=== PATIENT | female | born 1965 | race Caucasian/White ===

== ENCOUNTER 2017-10-30 16:23 | Emergency (ER) | payer BC ==
[~2017-10-30] VITALS: Ht 170.2 cm; Wt 96.6 kg
[2017-10-30 16:40] VITALS: TEMP 36.7; Ht 170.2 cm; Wt 96.6 kg
--- NOTE | 2017-10-30 17:13 | DIAGNOSTIC IMAGING REPORT ---
LEFT KNEE 3 VIEWS CLINICAL HISTORY: Left knee pain. Twisting injury. FINDINGS: AP, crosstable lateral, and sunrise views of the left knee are obtained. No prior studies are available for comparison at the time of dictation. The skeletal structures are well mineralized for age. No fracture is identified. There is mild degenerative joint space narrowing in the medial and patellofemoral compartments. There are patellar enthesophytes. A joint effusion is identified. A calcified fabella is incidentally noted. Soft tissue swelling is seen around the knee. IMPRESSION: 1. Soft tissue swelling and joint effusion. No left knee fracture is seen. 2. Degenerative change as above. Electronically signed by: Edy Trammell M.D. 10/30/2017 5:12 PM Dictated Date/Time: 10/30/2017 5:11 PM
[2017-10-30] MEDS ORDERED: CYCL10TA6 PO (17:41)
--- NOTE | 2017-10-30 17:42 | EMERGENCY ROOM VISIT NOTE ---
History First contact with patient: 16:42 Chief Complaint: LEG PAIN,LEG INJURY Stated Complaint: LEFT KNEE INJURY History of Present Illness The patient is a 52 year old female who presents to the Emergency Room with complaints of left knee pain. Patient reports that she had a previous injury to the left knee approximately 1 year ago. She states that she reinjured her knee last week. She states that she was standing and twisted her knee. She reports pain throughout her knee which is worse at night when she lies down and worse with walking or weightbearing. She rates her discomfort an 8/10 and states it is an aching pain. She denies any history of surgery or issues with this knee. She denies any numbness or weakness. Review of Systems A complete 6 point review of systems was reviewed with the patient with pertinent positives and negatives as per history of present illness. All else were negative. Past Medical/Surgical History Medical Problems: (1) Diabetes mellitus, type II (2) Hypertension Surgical Problems: (1) History of appendectomy (2) History of section (3) History of wisdom tooth extraction Social History Smoking Status: Never Smoker Alcohol Use: none Housing Status: lives with family Occupation Status: employed Current/Historical Medications Scheduled Cyclobenzaprine Hcl (Flexeril), 10 MG PO TID Physical Exam Vital Signs Date Time Temp Pulse Resp B/P (MAP) Pulse Ox O2 Delivery O2 Flow Rate FiO2 10/30/17 17:51 65 16 134/76 98 10/30/17 16:40 36.7 95 16 133/78 97 Room Air Physical Exam VITALS: Vitals are noted on the nurse's note and reviewed by myself. Vital signs stable. GENERAL: This is a 52-year-old female, in no acute distress, nondiaphoretic, well-developed well-nourished. SKIN: The skin was without rashes, erythema, edema, or bruising. MUSCULOSKELETAL: No deformity of the left knee. There is vague tenderness to palpation to both medial and lateral aspects of the left knee. No laxity to valgus or varus stressing. Full range of motion. NEURO: Patient was alert and oriented to person place and time. Normal sensation to touch of the left lower extremity. Medical Decision & Procedures ER Provider Diagnostic Interpretation: LEFT KNEE 3 VIEWS CLINICAL HISTORY: Left knee pain. Twisting injury. FINDINGS: AP, crosstable lateral, and sunrise views of the left knee are obtained. No prior studies are available for comparison at the time of dictation. The skeletal structures are well mineralized for age. No fracture is identified. There is mild degenerative joint space narrowing in the medial and patellofemoral compartments. There are patellar enthesophytes. A joint effusion is identified. A calcified fabella is incidentally noted. Soft tissue swelling is seen around the knee. IMPRESSION: 1. Soft tissue swelling and joint effusion. No left knee fracture is seen. 2. Degenerative change as above. Medical Decision Differential diagnosis includes fracture, contusion, sprain, ligamentous injury , among others. The patient was evaluated as above. X-ray of the left knee was performed and did show a joint effusion but no acute bony abnormalities. Patient was informed of the findings. She declined crutches and knee immobilizer, stating that she has a brace at home that she would like to wear. She was advised to follow-up with orthopedics for further evaluation. She has been taking Flexeril and states this helps her significantly. She was given a prescription for this. She verbalized understanding of my assessment and treatment plan was discharged home in good condition. Medication Reconcilliation Current Medication List: was personally reviewed by [place] Blood Pressure Screening Patient's blood pressure: Normal blood pressure Impression Primary Impression: Left knee pain Departure Information Dispostion Home / Self-Care Condition GOOD Prescriptions Cyclobenzaprine Hcl (FLEXERIL) 10 Mg Tab 10 MG PO TID for 5 Days, #15 TAB Prov: Shantell Granados .[place] 10/30/17 Referrals RV. Goldsmith MD (PCP) Arpan Hernandez M.D. Patient Instructions My [facility] Additional Instructions You have been treated in the Emergency Department for Knee Pain. Flexeril as prescribed as needed for pain. For pain control, you can use the following [id number] medicines (if >12 yo): - Regular strength (325mg/tab) Tylenol (acetaminophen) 2 tabs every 4-6 hours as needed. Do not exceed 12 tablets in a 24 hour period. Avoid taking more than 4 grams (4000 mg) of Tylenol per day. This includes any other sources of acetaminophen you may take on a regular basis. - Regular strength (200 mg/tab) Advil (ibuprofen) 1-2 tabs every 4-6 hours as needed. Do not exceed a dose of 3200 mg per day. If this is a recent injury (<24 hrs), ice can be applied to the area of pain for the first 3 days to help decrease pain and inflammation. Ice massages can be performed by freezing water in a paper cup, peeling back the cup to expose the ice and then massaging over the affected area. Follow-up with orthopedics for further evaluation of your knee pain. Return to the Emergency Department if your current symptoms worsen despite treatment course outlined above. Problem Qualifiers Primary Impression: Left knee pain Chronicity: acute Qualified Codes: M25.562 - Pain in left knee
[2017-10-30 17:51] VITALS: BP 134/76; PULSE 65; O2SAT 98
== END 2017-10-30 17:52 | disposition home or self-care (01) ==
LOC: C.EDB 16:25 → C.EDD 17:52
DX: M25.562 Pain in left knee (principal); X50.0XXA Overexertion from strenuous movement or load, initial encounter; E11.9 Type 2 diabetes mellitus without complications; I10 Essential (primary) hypertension

== ENCOUNTER 2018-01-08 16:33 | Emergency (ER) | payer BC ==
[~2018-01-08] VITALS: Ht 170.2 cm; Wt 97.4 kg
[2018-01-08 16:36] VITALS: TEMP 36.7; Ht 170.2 cm; Wt 97.4 kg
[2018-01-08 17:04] LABS: BASO % 0.5 %; BASO ABS # 0.03 K/uL (0-0.2); EOS % 1.7 %; EOS ABS # 0.11 K/uL (0-0.5); HEMATOCRIT 37.3 % (37-47); HEMOGLOBIN 12.8 g/dL (12.0-16.0); IG# 0.02 K/uL (0.00-0.02); LYMPH % 39.5 %; LYMPH ABS # 2.59 K/uL (1.2-3.4); MEAN CELL VOLUME 81.1 fL (80-100); MEAN CORPUSCULAR HEMOGLOBIN 27.8 pg (25-34); MEAN CORPUSCULAR HGB CONC 34.3 g/dl (32-36); MEAN PLATELET VOLUME 9.7 fL (7.4-10.4); MONO ABS # 0.26 K/uL (0.11-0.59); NEUT ABS # 3.54 K/uL (1.4-6.5); PLATELET COUNT 189 K/uL (130-400); RED CELL DISTRIBUTION WIDTH CV 15.9 % (11.5-14.5); RED CELL DISTRIBUTION WIDTH SD 47.1 fL (36.4-46.3); WHITE BLOOD COUNT 6.55 K/uL (4.8-10.8)
[2018-01-08 17:26] LABS: ALBUMIN 4.2 gm/dl (3.4-5.0); CALCIUM 8.9 mg/dl (8.5-10.1); CREATININE 0.77 mg/dl (0.60-1.20); POTASSIUM 4.2 mmol/L (3.5-5.1); TOTAL PROTEIN 7.5 gm/dl (6.4-8.2)
--- NOTE | 2018-01-08 17:49 | DIAGNOSTIC IMAGING REPORT ---
ULTRASOUND RIGHT UPPER QUADRANT ABDOMEN CLINICAL HISTORY: Right upper quadrant and epigastric abdominal pain. COMPARISON STUDY: No priors. TECHNIQUE: Real-time, grayscale, and color flow sonography of the right upper quadrant of the abdomen was performed. Images are reviewed in the transverse and longitudinal planes. FINDINGS: Liver: The liver is enlarged and demonstrates heterogeneously increased echotexture consistent with hepatic steatosis. Fatty sparing is seen adjacent to gallbladder fossa. There is no intrahepatic biliary ductal dilatation. The main portal vein is patent. Gallbladder: There are numerous calcified shadowing gallstones. The gallbladder is not distended. There is no gallbladder wall thickening or pericholecystic fluid. A sonographic Thomas's sign is reportedly absent. The common bile duct measures up to 0.5 cm in diameter. Pancreas: Visualized portions of the pancreatic head and body are normal in appearance. The splenic vein is patent. Right kidney: Survey images of the right kidney demonstrate normal size and echotexture. There is no hydronephrosis. Ascites: None. IMPRESSION: 1. Cholelithiasis without sonographic evidence of acute cholecystitis. 2. Hepatomegaly and hepatic steatosis. Electronically signed by: Edy Trammell M.D. 01/08/2018 5:47 PM Dictated Date/Time: 01/08/2018 5:46 PM
[2018-01-08] MEDS ORDERED: INSU1INJ31 SC (18:01)
[2018-01-08] MEDS ORDERED: MECL1TAB42 PO (18:01)
[2018-01-08] MEDS ORDERED: GABA-113 PO (18:01)
[2018-01-08] MEDS ORDERED: ASPI81TA28 PO (18:01)
[2018-01-08] MEDS ORDERED: EFF75 PO (18:01)
[2018-01-08] MEDS ORDERED: LSN20 PO (18:01)
[2018-01-08] MEDS ORDERED: OMEG10007 PO (18:01)
[2018-01-08] MEDS ORDERED: ATOR-24 PO (18:01)
[2018-01-08] MEDS ORDERED: MELO-84 PO (18:01)
[2018-01-08] MEDS ORDERED: PRLSR20 PO (18:01)
[2018-01-08] MEDS ORDERED: ALPR-411 PO (18:01)
[2018-01-08] MEDS ORDERED: CYAN500T PO (18:01)
[2018-01-08] MEDS ORDERED: METF-384 PO (18:01)
[2018-01-08] MEDS ORDERED: INSU1.2I SC (18:01)
[2018-01-08] MEDS ORDERED: GI COCKTAIL PO STA (18:20)
[2018-01-08] MEDS ORDERED: ALUMINUM/MAGNESIUM SUSP 30 ML UDC ONE (18:40)
[2018-01-08] MEDS ORDERED: LIDOCAINE HCL 2% VISC SOLN 20 ML UDC ONE (18:40)
[2018-01-08 19:00] VITALS: BP 113/65; PULSE 95; O2SAT 95
--- NOTE | 2018-01-08 19:00 | EMERGENCY ROOM VISIT NOTE ---
History Report prepared by Sallie: Louann Ramirez Under the Supervision of: Dr. Luther Mckinney D.O. First contact with patient: 16:39 Chief Complaint: ABDOMINAL PAIN Stated Complaint: EPI GASTRIC AND RUQ PO X3DAY History of Present Illness The patient is a 52 year old female who presents to the Emergency Room with complaints of constant abdominal pain starting 3 days ago. The patient states that it started out and was mild. She reports that it has since become worse. She reports that the pain is in her epigastric and right upper quadrant. She state that she thought it was just muscular, but it has not gotten better. She notes that she was in tears after her 12 hour shift yesterday. The patient currently rates her pain as a 5/10 in severity. She notes her last bowel movement was sometime today and was normal. Pain does not radiate anywhere else. Pain is worse when she hunches over or stretches out her abdomen. Does not change with eating or drinking. The patient denies urinary symptoms, chest pain, shortness of breath, back pain, the pain being worse with movement, and changes with eating or drinking. She notes that she has a history of an appendectomy, but has not had a hysterectomy or cholecystectomy. Source of History: patient Onset: 3 days ago Position: abdomen Symptom Intensity: 5/10 Timing: constant Associated Symptoms: No chest pain, No SOB, No back pain, No urinary symptoms Note: The patient denies the pain being worse with movement. Review of Systems See HPI for pertinent positives & negatives. A total of 10 systems reviewed and were otherwise negative. Past Medical & Surgical Medical Problems: (1) Diabetes mellitus, type II (2) Hypertension Surgical Problems: (1) History of appendectomy (2) History of section (3) History of wisdom tooth extraction Family History Cancer Diabetes mellitus Heart disease Hypertension Social History Smoking Status: Never Smoker Alcohol Use: none Marital Status: Housing Status: lives with family Occupation Status: employed Current/Historical Medications Scheduled Aspirin (Aspirin Ec), 81 MG PO DAILY Atorvastatin (Lipitor), 40 MG PO DAILY Cyanocobalamin (Vitamin B-12), 500 MCG PO DAILY Fish Oil ([place]-3), 1 CAP PO DAILY Insulin Glargine (Toujeo Solostar), 80 UNITS SC QPM Insulin Lispro (Human) (Humalog Kwikpen), Unknown Dose SC DIRECTED Lisinopril (Lisinopril), 30 MG PO DAILY Metformin Hcl (Glucophage), 1,000 MG PO BID Omeprazole (Prilosec), 20 MG PO DAILY Venlafaxine Hcl (Effexor), 75 MG PO DAILY Scheduled PRN Alprazolam (Xanax), 0.25 MG PO TID PRN for Anxiety/Agitation Gabapentin (Neurontin), 300 MG PO BID PRN for Pain Meclizine Hcl (Meclizine Hcl), 25 MG PO TID PRN for Dizziness or Vertigo Meloxicam (Mobic), 15 MG PO DAILY PRN for Pain Allergies Coded Allergies: Latex1 -Allergic Contact Dermititis (Verified Allergy, Intermediate, RED RASH, IRRITATION TO SKIN, 01/08/18) Latex (Verified Allergy, Unknown, RASH, 01/08/18) Physical Exam Vital Signs Date Time Temp Pulse Resp B/P (MAP) Pulse Ox O2 Delivery O2 Flow Rate FiO2 01/08/18 18:35 95 18 113/65 95 Room Air 01/08/18 16:36 36.7 99 20 117/74 97 Room Air Physical Exam GENERAL: Sitting up in bed, alert, well appearing, well nourished, no distress, non-toxic EYE EXAM: normal conjunctiva. OROPHARYNX: no exudate, no erythema, lips, buccal mucosa, and tongue normal and mucous membranes are moist NECK: supple, no nuchal rigidity, no adenopathy, non-tender LUNGS: Clear to auscultation. Normal chest wall mechanics HEART: no murmurs, S1 normal and S2 normal ABDOMEN: abdomen soft, tender to palpation in epigastric and RUQ, normo-active bowel sounds, no masses, no rebound or guarding. BACK: Back is symmetrical on inspection and there is no deformity, no midline tenderness, no CVA tenderness. SKIN: no rashes and no bruising UPPER EXTREMITIES: upper extremities are grossly normal. LOWER EXTREMITIES: No pitting edema. NEURO EXAM: Normal sensorium, cranial nerves II-XII grossly intact, normal speech, no gross weakness of arms, no gross weakness of legs. Medical Decision & Procedures ER Provider Diagnostic Interpretation: Radiology results as stated below per my review and the radiologist's interpretation: ULTRASOUND RIGHT UPPER QUADRANT ABDOMEN CLINICAL HISTORY: Right upper quadrant and epigastric abdominal pain. COMPARISON STUDY: No priors. TECHNIQUE: Real-time, grayscale, and color flow sonography of the right upper quadrant of the abdomen was performed. Images are reviewed in the transverse and longitudinal planes. FINDINGS: Liver: The liver is enlarged and demonstrates heterogeneously increased echotexture consistent with hepatic steatosis. Fatty sparing is seen adjacent to gallbladder fossa. There is no intrahepatic biliary ductal dilatation. The main portal vein is patent. Gallbladder: There are numerous calcified shadowing gallstones. The gallbladder is not distended. There is no gallbladder wall thickening or pericholecystic fluid. A sonographic Thomas's sign is reportedly absent. The common bile duct measures up to 0.5 cm in diameter. Pancreas: Visualized portions of the pancreatic head and body are normal in appearance. The splenic vein is patent. Right kidney: Survey images of the right kidney demonstrate normal size and echotexture. There is no hydronephrosis. Ascites: None. IMPRESSION: 1. Cholelithiasis without sonographic evidence of acute cholecystitis. 2. Hepatomegaly and hepatic steatosis. Electronically signed by: Edy Trammell M.D. 01/08/2018 5:47 PM Dictated Date/Time: 01/08/2018 5:46 PM Laboratory Results 01/08/18 16:55 Red Blood Count 4.60, Mean Corpuscular Volume 81.1, Mean Corpuscular Hemoglobin 27.8, Mean Corpuscular Hemoglobin Concent 34.3, Mean Platelet Volume 9.7, Neutrophils (%) (Auto) 54.0, Lymphocytes (%) (Auto) 39.5, Monocytes (%) (Auto) 4.0, Eosinophils (%) (Auto) 1.7, Basophils (%) (Auto) 0.5, Neutrophils # (Auto) 3.54, Lymphocytes # (Auto) 2.59, Monocytes # (Auto) 0.26, Eosinophils # (Auto) 0.11, Basophils # (Auto) 0.03 01/08/18 16:55 Test 01/08/18 16:55 01/08/18 18:15 White Blood Count 6.55 K/uL (4.8-10.8) Red Blood Count 4.60 M/uL (4.2-5.4) Hemoglobin 12.8 g/dL (12.0-16.0) Hematocrit 37.3 % (37-47) Mean Corpuscular Volume 81.1 fL (80-100) Mean Corpuscular Hemoglobin 27.8 pg (25-34) Mean Corpuscular Hemoglobin Concent 34.3 g/dl (32-36) Platelet Count 189 K/uL (130-400) Mean Platelet Volume 9.7 fL (7.4-10.4) Neutrophils (%) (Auto) 54.0 % Lymphocytes (%) (Auto) 39.5 % Monocytes (%) (Auto) 4.0 % Eosinophils (%) (Auto) 1.7 % Basophils (%) (Auto) 0.5 % Neutrophils # (Auto) 3.54 K/uL (1.4-6.5) Lymphocytes # (Auto) 2.59 K/uL (1.2-3.4) Monocytes # (Auto) 0.26 K/uL (0.11-0.59) Eosinophils # (Auto) 0.11 K/uL (0-0.5) Basophils # (Auto) 0.03 K/uL (0-0.2) RDW Standard Deviation 47.1 fL (36.4-46.3) RDW Coefficient of Variation 15.9 % (11.5-14.5) Immature Granulocyte % (Auto) 0.3 % Immature Granulocyte # (Auto) 0.02 K/uL (0.00-0.02) Anion Gap 7.0 mmol/L (3-11) Est Creatinine Clear Calc Drug Dose 101.3 ml/min Estimated GFR () 102.2 Estimated GFR (Non- 88.2 BUN/Creatinine Ratio 23.3 (10-20) Calcium Level 8.9 mg/dl (8.5-10.1) Total Bilirubin 0.4 mg/dl (0.2-1) Direct Bilirubin 0.1 mg/dl (0-0.2) Aspartate Amino Transf (AST/SGOT) 20 U/L (15-37) Alanine Aminotransferase (ALT/SGPT) 44 U/L (12-78) Alkaline Phosphatase 99 U/L (45-117) Total Protein 7.5 gm/dl (6.4-8.2) Albumin 4.2 gm/dl (3.4-5.0) Lipase 84 U/L (73-393) Urine Color YELLOW Urine Appearance CLEAR (CLEAR) Urine pH 5.0 (4.5-7.5) Urine Specific [place] 1.031 (1.000-1.030) Urine Protein NEG (NEG) Urine Glucose (UA) NEG (NEG) Urine Ketones TRACE (NEG) Urine Occult Blood NEG (NEG) Urine Nitrite NEG (NEG) Urine Bilirubin NEG (NEG) Urine Urobilinogen NEG (NEG) Urine Leukocyte Esterase TRACE (NEG) Urine WBC (Auto) 1-5 /hpf (0-5) Urine RBC (Auto) 0-4 /hpf (0-4) Urine Hyaline Casts (Auto) 1-5 /lpf (0-5) Urine Epithelial Cells (Auto) 10-20 /lpf (0-5) Urine Bacteria (Auto) NEG (NEG) Urine Test NEG (NEG) Laboratory results per my review. Medications Administered Medications (Trade) Dose Ordered Sig/Murtaza Route Start Time Stop Time Status Last Admin Dose Admin Lidocaine HCl (Viscous Lidocaine 2% Soln) 20 ml STK-MED ONCE .ROUTE 01/08/18 18:40 01/08/18 18:41 DC 01/08/18 18:43 20 ML Al Hydroxide/Mg Hydroxide (Maalox Susp) 30 ml STK-MED ONCE .ROUTE 01/08/18 18:40 01/08/18 18:41 DC 01/08/18 18:43 30 ML ECG Per My Interpretation Indication: abdominal pain Rate (beats per minute): 94 Rhythm: sinus rhythm Findings: no ectopy, other (normal axis) ED Course ED COURSE: Vital signs were reviewed and showed that they were normal. The patients medical record was reviewed The above diagnostic studies were performed and reviewed. ED treatments and interventions as stated above. 1644: The patient was evaluated in room C7. A complete history and physical examination was performed. 1840: Ordered GI Cocktail 24 ml PO. 1843: I reevaluated the patient and she just received her GI Cocktail. 1852: Upon reevaluation, the patient is resting comfortably.I discussed my findings with the patient and she understands and agrees with the treatment plan. Based on the patients age, coexisting illnesses, exam and lab findings the decision to treat as an outpatient was made. The patient remained stable while under my care. The patient appeared well at the time of discharge. Medical Decision Differential diagnoses includes but is not limited to gastritis, peptic ulcer disease, GERD, gallbladder disease, pancreatitis, small bowel obstruction, acute coronary syndrome, pericarditis, ischemic bowel, irritable bowel disease, irritable bowel syndrome, appendicitis, diverticulitis, malignancy, hernia, urinary tract infection, torsion, /ectopic , perforation, trauma, infectious. Patient is a 52-year-old female who presents the ER for epigastric/right upper quadrant abdominal pain which is been present for the past 3 days. Pain is worsened with flexion of her abdomen and with significant extension/laying down. Pain is significantly worsened as well with palpation. Does not change with eating and drinking. CBC along with BMP, LFTs, bilirubin and lipase is unremarkable. UA was negative. was negative. EKG was obtained although this does not sound cardiac as there is no exertional symptoms. EKG was unremarkable. Ultrasound did show cholelithiasis without clear signs of cholecystitis. There is no transaminitis or elevated bilirubin. She did feel slightly better with GI cocktail. She is taking omeprazole. Did update her at bedside. She will follow-up with her PCP as an outpatient. Nothing to suggest dissection. I do not believe that this is cardiac as stated above based on history. EKG was unremarkable. She is updated at bedside. She is discharged follow-up with PCP as an outpatient as I do favor this is likely gastric or related to the gallbladder. Discussed with Pt concerning signs and symptoms to watch out for. Pt was instructed to follow up with their PCP and discussed with the patient their option to return to the ED at anytime for persistent or worsening symptoms. The appropriate anticipatory guidance and out-patient management, including indications for return to the emergency department, were explained at length to the patient and understood. Medication Reconcilliation Current Medication List: was personally reviewed by me Blood Pressure Screening Patient's blood pressure: Normal blood pressure Blood pressure disposition: Did not require urgent referral Impression Primary Impression: Epigastric abdominal pain Scribe Attestation The scribe's documentation has been prepared under my direction and personally reviewed by me in its entirety. I confirm that the note above accurately reflects all work, treatment, procedures, and medical decision making performed by me. Departure Information Dispostion Home / Self-Care Referrals RV. Goldsmith MD (PCP) Forms Call Back Authorization, HOME CARE DOCUMENTATION FORM, IMPORTANT VISIT INFORMATION Patient Instructions My [facility] Additional Instructions Please follow up with your primary care doctor with in the next 24 hours. Any worsening of your symptoms, please return to the ED immediately. This includes any fevers greater than 100.4, worsening pain, chest pain, shortness breath, persistent nausea, vomiting, unable to eat or drink, or any other concerning signs or symptoms from your standpoint. Any worsening of her symptoms please return to ER.
== END 2018-01-08 19:01 | disposition home or self-care (01) ==
LOC: C.EDB 16:36 → C.EDC 19:01
DX: R10.13 Epigastric pain (principal); I10 Essential (primary) hypertension; E11.9 Type 2 diabetes mellitus without complications; Z98.891 History of uterine scar from previous surgery; Z98.818 Other dental procedure status; Z90.89 Acquired absence of other organs; Z91.040 Latex allergy status; Z83.3 Family history of diabetes mellitus; Z82.49 Family history of ischemic heart disease and other diseases of the circulatory system; Z79.4 Long term (current) use of insulin; Z79.82 Long term (current) use of aspirin; Z79.84 Long term (current) use of oral hypoglycemic drugs; Z79.899 Other long term (current) drug therapy

== ENCOUNTER → 2018-03-30 | Outpatient (CLI) | payer BC ==
[~2018-03-30] MED LIST: ALBU18002 INH; ALPR-411 PO; ASPI81TA28 PO; ATOR-24 PO; CYAN500T PO; EFF75 PO; GABA-113 PO; INSU1.2I SC; INSU1INJ31 SC; LISI-726 PO; MECL1TAB42 PO; METF-384 PO; OMEG10007 PO; PRLSR20 PO
[2018-03-30 11:58] LABS: BASO % 0.7 %; BASO ABS # 0.04 K/uL (0-0.2); EOS % 2.2 %; EOS ABS # 0.13 K/uL (0-0.5); HEMATOCRIT 36.2 % (37-47); HEMOGLOBIN 12.5 g/dL (12.0-16.0); IG# 0.03 K/uL (0.00-0.02); LYMPH % 35.2 %; LYMPH ABS # 2.12 K/uL (1.2-3.4); MEAN CELL VOLUME 82.5 fL (80-100); MEAN CORPUSCULAR HEMOGLOBIN 28.5 pg (25-34); MEAN CORPUSCULAR HGB CONC 34.5 g/dl (32-36); MEAN PLATELET VOLUME 10.2 fL (7.4-10.4); MONO % 4.5 %; MONO ABS # 0.27 K/uL (0.11-0.59); NEUT % 56.9 %; NEUT ABS # 3.43 K/uL (1.4-6.5); PLATELET COUNT 188 K/uL (130-400); RED CELL DISTRIBUTION WIDTH CV 14.9 % (11.5-14.5); RED CELL DISTRIBUTION WIDTH SD 44.2 fL (36.4-46.3); WHITE BLOOD COUNT 6.02 K/uL (4.8-10.8)
[2018-03-30 12:10] LABS: BLOOD UREA NITROGEN 17 mg/dl (7-18); CALCIUM 8.8 mg/dl (8.5-10.1); CARBON DIOXIDE 25 mmol/L (21-32); CREATININE 0.76 mg/dl (0.60-1.20); GLUCOSE 222 mg/dl (70-99); POTASSIUM 4.2 mmol/L (3.5-5.1); SODIUM 138 mmol/L (136-145)
[2018-03-30 12:11] LABS: PTT PATIENT 24.5 SECONDS (21.0-31.0)
--- NOTE | 2018-03-30 12:14 | DIAGNOSTIC IMAGING REPORT ---
CHEST 2 VIEWS ROUTINE CLINICAL HISTORY: Preoperative evaluation. COMPARISON STUDY: No previous studies for comparison. FINDINGS: Lung volumes are normal. Lungs are clear. No pneumothorax or pleural effusion is noted. Cardiac size is normal. Mediastinal contours are normal. There is no evidence for pulmonary edema. IMPRESSION: No acute cardiopulmonary findings. Electronically signed by: Kofi Sena M.D. 03/30/2018 12:13 PM Dictated Date/Time: 03/30/2018 12:12 PM
== END | disposition home or self-care (01) ==
LOC: C.CPL 11:08
PROVIDERS: ATTEND Orthopaedic Surgery Sports Medicine
DX: Z01.810 Encounter for preprocedural cardiovascular examination (principal); Z01.811 Encounter for preprocedural respiratory examination; Z01.812 Encounter for preprocedural laboratory examination